=== PATIENT | female | born 1960 | race Caucasian/White ===

== ENCOUNTER → 2017-01-28 | Day surgery (SDC) | payer MEDICARE, OTHER ==
[~2017-01-28] MED LIST: BAYER CHEWABLE81 MG PO; CLARITIN10 M3 DOB; ESCITALOPRAM OX10 MG PO; HYDROCHLOROTHIA25 MG PO; OMEPRAZOLE20 M2 PO; VALIUM10 MG PO
--- NOTE | ~2017-01-28 | OR ---
Unit #: [id number] #: [id number] Patient: GUMARO WHEAT [id number] [address] [address] [id number] O MR#: [id number] NAME: GUMARO WHEAT ROOM: Date of Procedure: 01/28/2017 Admission Date: 01/28/2017 Surgeon: Serafin Carrasquillo M.D. : 1960 Attending Physician: Serafin Carrasquillo M.D. Primary Care Physician: Joselyn Davison A.P.R.N. OPERATIVE REPORT PROCEDURE PERFORMED Colonoscopy with biopsy and colonoscopy with snare polypectomy. INDICATIONS FOR PROCEDURE A 56-year-old Hemoccult stool, undergoing evaluation with colonoscopy. MEDICATIONS Monitored anesthesia. POSTOPERATIVE FINDINGS 1. Large lipoma, posterior leaf of ileocecal valve. Biopsies taken for to rule out any adenoma. 2. Polyps x3, ascending colon, 4 to 6 mm each, snared and sent for histopathology. 3. Polyp x2, sigmoid colon, 4 to 6 mm, snared and sent for histopathology. 4. Internal hemorrhoid. 5. Good prep. PLAN Follow up on the pathology report. Repeat colonoscopy in 3 years. DESCRIPTION OF PROCEDURE The patient was explained of the procedure, risks, and benefits along with the risk and benefits of anesthesia. She was brought to the endoscopy room. Propofol anesthesia was given. Rectal exam was done, which was normal. Colonoscope was lubricated, passed up the rectum, advanced under direct vision all the way to the cecum. Cecum was identified by ileocecal valve and appendiceal orifice. Findings as described above. Biopsies taken. Polyps were snared. I retroflexed in the rectum, small hemorrhoids seen. Scope was gently pulled out. She tolerated it well. Dictated by... Lalito Jones/angel TD: 01/28/2017 16:47 JOB #: [id number] CC: Muna Chicas M.D. Unit #: [id number] #: [id number] Patient: GUMARO WHAET OPERATIVE REPORT Page 1 of 1 X Serafin Carrasquillo MD PROCEDURE OPERATIVE NOTE
== END | disposition home or self-care (01) ==
LOC: COPS 01-23 08:30
DX: D12.2 Benign neoplasm of ascending colon (principal); D17.5 Benign lipomatous neoplasm of intra-abdominal organs; K63.5 Polyp of colon; K64.8 Other hemorrhoids; I10 Essential (primary) hypertension; F17.200 Nicotine dependence, unspecified, uncomplicated
CPT/HCPCS: 88305; J2250